=== PATIENT | female | born 1955 | race Caucasian/White ===

== ENCOUNTER 2021-04-03 12:05 | Inpatient (IN) | payer OTHER ==
[~2021-04-03] VITALS: Ht 152.4 cm; Wt 52.9 kg
[2021-04-03] MEDS ORDERED: CITA-144 PO (12:36)
[2021-04-03] MEDS ORDERED: ISOS30TA92 PO (12:36)
[2021-04-03] MEDS ORDERED: OXYB-34 PO (12:36)
[2021-04-03] MEDS ORDERED: CLOP75TA60 PO (12:36)
[2021-04-03] MEDS ORDERED: PRAV20TA4 PO (12:36)
[2021-04-03] MEDS ORDERED: CARB100 PO (12:36)
[2021-04-03] MEDS ORDERED: CARV12 PO (12:36)
[2021-04-03] MEDS ORDERED: DANT25CA2 PO (12:36)
[2021-04-03] MEDS ORDERED: TIZA6CAP PO (12:36)
[2021-04-03] MEDS ORDERED: OMEP20 PO (12:36)
[2021-04-03] MEDS ORDERED: AMLO-257 PO (12:36)
[2021-04-03] MEDS ORDERED: DIAZ5TAB5 PO (12:36)
[2021-04-03 13:04] LABS: BASOPHILS % (AUTO) 0.8 % (0.0-2.0); EOSINOPHILS % (AUTO) 0.1 % (1.0-6.0); HEMATOCRIT 44.5 % (36-46); HEMOGLOBIN 14.8 g/dL (12.0-16.0); LYMPHOCYTES # (AUTO) 1.6 K/uL (1.0-4.8); LYMPHOCYTES % (AUTO) 24.8 % (22.0-44.0); MEAN CORPUSCULAR HEMOGLOBIN 32.4 pg (26.0-34.0); MEAN CORPUSCULAR HGB CONC 33.3 G/dL (31.0-37.0); MEAN CORPUSCULAR VOLUME 97 fL (80-100); MONOCYTES # (AUTO) 0.5 K/uL (0.1-1.0); MONOCYTES % (AUTO) 8.1 % (2.0-9.0); NEUTROPHILS # (AUTO) 4.3 K/uL (1.8-7.7); NEUTROPHILS % (AUTO) 66.2 % (40.0-70.0); PLATELET COUNT (AUTO) 217 K/uL (150-450); RED BLOOD CELL COUNT(AUTO) 4.57 MIL/uL (4.00-5.20); RED CELL DISTRIBUTION WIDTH 12.7 % (11.5-14.5)
[2021-04-03 13:21] LABS: COVID AG,FIA SOURCE NASOPHARYNGEAL
[2021-04-03 13:43] LABS: INR 1.1 (0.9-1.1); PROTHROMBIN TIME 11.7 SEC (9.4-11.6)
[2021-04-03 14:12] LABS: AMPHET/METH SCREEN,URINE NEGATIVE (NEGATIVE); BARBITURATE SCREEN, URINE NEGATIVE (NEGATIVE); BENZODIAZEPINES SCREEN,URINE POSITIVE (NEGATIVE); CANNABINOID SCREEN,URINE NEGATIVE (NEGATIVE); COCAINE SCREEN,URINE NEGATIVE (NEGATIVE); METHADONE SCREEN, URINE NEGATIVE (NEGATIVE); OPIATE SCREEN,URINE NEGATIVE (NEGATIVE)
[2021-04-03 14:15] LABS: PHENCYCLIDINE SCREEN,URINE NEGATIVE (NEGATIVE)
[2021-04-03] MEDS ORDERED: ACETAMINOPHEN 325 MG TABLET PO PRN (15:00)
[2021-04-03] MEDS ORDERED: ONDANSETRON HCL 4 MG/2 ML VIAL IVP PRN (15:00)
[2021-04-03] MEDS ORDERED: 0.9% SODIUM CHLORIDE 10 ML SYRINGE IVP PRN (15:00)
[2021-04-03] MEDS ORDERED: OXYB5TAB20 PO (15:02)
[2021-04-03] MEDS ORDERED: ISOSM20 PO (15:02)
[2021-04-03 15:10] LABS: ALANINE AMINOTRANSFERASE 27 U/L (12-78); ALBUMIN 4.1 g/dL (3.4-5.0); ALKALINE PHOSPHATASE 88 U/L (46-116); ANION GAP 11 mmol/L (8-16); ASPARTATE AMINOTRANSFERASE 22 U/L (15-37); BILIRUBIN,TOTAL 0.3 mg/dL (0.1-1.0); CARBON DIOXIDE 27 mmol/L (22-29); CHLORIDE 104 mmol/L (98-107); GLOMERULAR FILTR. RATE CALC > 60 mL/min (>60); GLUCOSE,RANDOM 88 mg/dL (70-110); POTASSIUM 3.5 mmol/L (3.5-5.1); SODIUM SERUM 142 mmol/L (136-145); TOTAL PROTEIN, SERUM 7.9 g/dL (6.4-8.2); UREA NITROGEN, BLOOD 18 mg/dL (7-18)
[2021-04-03 15:57] LABS: SALICYLATE < 2.8 mg/dL (2.8-20.0)
[2021-04-03 16:31] LABS: ACETAMINOPHEN < 2 mcg/mL (10-30)
[2021-04-03 16:48] VITALS: BP 160/89
[2021-04-03 16:53] LABS: CARBAMAZEPINE (TEGRETOL) 8.9 mcg/mL (4.0-12.0); FREE T4 (FREE THYROXINE) 0.79 ng/dL (0.76-1.46)
[2021-04-03 19:08] VITALS: BP 144/100
[2021-04-03 20:49] VITALS: BP 143/93
[2021-04-03] MEDS ORDERED: DIAZEPAM 5 MG TABLET PO PRN (23:30)
[2021-04-04] MEDS: CARVEDILOL 12.5 MG TABLET PO SCH ×3 (00:04→22:07)
[2021-04-04 00:12] VITALS: BP 157/93
[2021-04-04 04:20] VITALS: BP 158/87
[2021-04-04 08:00] VITALS: BP 149/87
[2021-04-04] MEDS: DANTROLENE SODIUM 25 MG CAPSULE PO SCH ×3 (08:50→22:08)
[2021-04-04] MEDS: NYSTATIN 15 GM POWDER BOTTLE TP SCH ×3 (08:50→22:12)
[2021-04-04] MEDS: PRAVASTATIN SODIUM 20 MG TABLET PO SCH (08:50)
[2021-04-04] MEDS: TiZANidine HCL 4 MG TABLET PO SCH ×3 (08:50→22:08)
[2021-04-04] MEDS: CarBAMazepine 100 MG CHEWABLE TABLET PO SCH ×3 (08:51→22:08)
[2021-04-04] MEDS: ISOSORBIDE MONONITRATE 30 MG ER TABLET PO SCH (08:51)
[2021-04-04] MEDS: AmLODIPine BESYLATE 5 MG TABLET PO SCH (08:51)
[2021-04-04] MEDS: PANTOPRAZOLE SODIUM 40 MG DR TABLET PO SCH (08:51)
[2021-04-04] MEDS: OXYBUTYNIN CHLORIDE 5 MG TABLET PO SCH ×3 (08:51→22:11)
[2021-04-04] MEDS: CLOPIDOGREL BISULFATE 75 MG TABLET PO SCH (08:51)
[2021-04-04] MEDS ORDERED: CITALOPRAM HYDROBROMIDE 20 MG TABLET PO SCH (09:00)
[2021-04-04] MEDS ORDERED: HYDROCODONE/ACETAMINOPHEN 5-325 MG TABLET PO PRN (09:30)
[2021-04-04] MEDS ORDERED: BISACODYL 10 MG RECTAL RECTAL SUPPOSITORY PR PRN (09:30)
[2021-04-04] MEDS ORDERED: ONDANSETRON HCL 4 MG/2 ML VIAL IVP PRN (09:30)
[2021-04-04] MEDS ORDERED: MORPHINE SULFATE 2 MG/ML SYRINGE IVP PRN (09:30)
[2021-04-04] MEDS ORDERED: ALBUTEROL SULFATE 2.5 MG/0.5 ML NEB SOLUTION NEB PRN (09:30)
[2021-04-04] MEDS ORDERED: ZOLPIDEM TARTRATE 5 MG TABLET PO PRN (09:30)
[2021-04-04] MEDS ORDERED: ACETAMINOPHEN 325 MG TABLET PO PRN (09:30)
[2021-04-04] MEDS ORDERED: MAGNESIUM HYDROXIDE SUSPENSION 30 ML UDCUP PO PRN (09:30)
[2021-04-04] MEDS ORDERED: IPRATROPIUM BROMIDE 0.5 MG/2.5 ML NEB SOLUTION NEB PRN (09:30)
[2021-04-04] MEDS: HEPARIN SODIUM,PORCINE 5,000 UNITS/ML VIAL SQ SCH (15:54)
[2021-04-04 16:39] VITALS: BP 139/88
[2021-04-04 20:32] VITALS: BP 123/92
[2021-04-04] MEDS: DOCUSATE SODIUM 100 MG CAPSULE PO SCH (22:07)
[2021-04-05 00:08] VITALS: BP 118/75
[2021-04-05] MEDS: HEPARIN SODIUM,PORCINE 5,000 UNITS/ML VIAL SQ SCH ×4 (00:25→23:36)
[2021-04-05 05:43] VITALS: BP_SYST 142; BP_SYST 145; BP_DIAS 100; BP_DIAS 75
[2021-04-05 08:37] VITALS: BP 173/100
[2021-04-05] MEDS: NYSTATIN 15 GM POWDER BOTTLE TP SCH ×2 (09:04→17:02)
[2021-04-05] MEDS: PETROLATUM,WHITE 28 GM JELLY TP SCH (09:04)
[2021-04-05] MEDS: THIAMINE 100 MG/ML 2 ML VIAL IM SCH (09:05)
[2021-04-05] MEDS: OXYBUTYNIN CHLORIDE 5 MG TABLET PO SCH ×3 (09:06→21:42)
[2021-04-05] MEDS: DANTROLENE SODIUM 25 MG CAPSULE PO SCH ×3 (09:06→21:42)
[2021-04-05] MEDS: CITALOPRAM HYDROBROMIDE 10 MG TABLET PO SCH (09:07)
[2021-04-05] MEDS: AmLODIPine BESYLATE 5 MG TABLET PO SCH (09:08)
[2021-04-05] MEDS: DOCUSATE SODIUM 100 MG CAPSULE PO SCH ×2 (09:08→21:00)
[2021-04-05] MEDS: PRAVASTATIN SODIUM 20 MG TABLET PO SCH (09:08)
[2021-04-05] MEDS: TiZANidine HCL 4 MG TABLET PO SCH ×3 (09:08→21:43)
[2021-04-05] MEDS: ISOSORBIDE MONONITRATE 30 MG ER TABLET PO SCH (09:09)
[2021-04-05] MEDS: FOLIC ACID 1 MG TABLET PO SCH (09:09)
[2021-04-05] MEDS: CLOPIDOGREL BISULFATE 75 MG TABLET PO SCH (09:09)
[2021-04-05] MEDS: ASCORBIC ACID 500 MG TABLET PO SCH (09:10)
[2021-04-05] MEDS: CarBAMazepine 100 MG CHEWABLE TABLET PO SCH ×3 (09:10→21:42)
[2021-04-05] MEDS: PANTOPRAZOLE SODIUM 40 MG DR TABLET PO SCH (09:11)
[2021-04-05] MEDS: CARVEDILOL 12.5 MG TABLET PO SCH (09:11)
[2021-04-05 12:33] VITALS: BP 134/94
[2021-04-05 15:46] VITALS: BP 132/90
[2021-04-05 20:00] VITALS: BP 100/63
[2021-04-06 00:06] VITALS: BP 101/68
[2021-04-06] MEDS: CARVEDILOL 12.5 MG TABLET PO SCH ×2 (00:12→08:24)
[2021-04-06] MEDS: NYSTATIN 15 GM POWDER BOTTLE TP SCH ×3 (00:15→15:54)
[2021-04-06 04:46] VITALS: BP 101/65
[2021-04-06 08:01] VITALS: BP 142/97
[2021-04-06] MEDS: DOCUSATE SODIUM 100 MG CAPSULE PO SCH (08:20)
[2021-04-06] MEDS: CITALOPRAM HYDROBROMIDE 10 MG TABLET PO SCH (08:20)
[2021-04-06] MEDS: DANTROLENE SODIUM 25 MG CAPSULE PO SCH ×2 (08:20→15:51)
[2021-04-06] MEDS: TiZANidine HCL 4 MG TABLET PO SCH ×2 (08:21→15:52)
[2021-04-06] MEDS: CLOPIDOGREL BISULFATE 75 MG TABLET PO SCH (08:22)
[2021-04-06] MEDS: ISOSORBIDE MONONITRATE 30 MG ER TABLET PO SCH (08:22)
[2021-04-06] MEDS: ASCORBIC ACID 500 MG TABLET PO SCH (08:23)
[2021-04-06] MEDS: FOLIC ACID 1 MG TABLET PO SCH (08:23)
[2021-04-06] MEDS: PRAVASTATIN SODIUM 20 MG TABLET PO SCH (08:24)
[2021-04-06] MEDS: PANTOPRAZOLE SODIUM 40 MG DR TABLET PO SCH (08:24)
[2021-04-06] MEDS: OXYBUTYNIN CHLORIDE 5 MG TABLET PO SCH ×2 (08:25→15:51)
[2021-04-06] MEDS: CarBAMazepine 100 MG CHEWABLE TABLET PO SCH ×2 (08:26→15:51)
[2021-04-06] MEDS: HEPARIN SODIUM,PORCINE 5,000 UNITS/ML VIAL SQ SCH ×2 (08:30→15:51)
[2021-04-06] MEDS: THIAMINE 100 MG/ML 2 ML VIAL IM SCH (08:33)
[2021-04-06] MEDS ORDERED: AmLODIPine BESYLATE 10 MG TABLET PO SCH (09:00)
[2021-04-06] MEDS: PETROLATUM,WHITE 28 GM JELLY TP SCH (09:54)
[2021-04-06 11:33] VITALS: BP 87/59
[2021-04-06] MEDS ORDERED: SODIUM CHLORIDE 0.9% 250 ML IV ONE (12:00)
[2021-04-06 12:35] VITALS: BP 110/71
[2021-04-06 15:32] VITALS: BP 114/75
== END 2021-04-06 17:30 | disposition home health service (06) | DRG 918 ==
LOC: EMS 12:05 → 6N 15:19
PROVIDERS: ADMIT Hospitalist; ATTEND Hospitalist
DX: T42.4X2A Poisoning by benzodiazepines, intentional self-harm, initial encounter (principal); R45.851 Suicidal ideations; F33.2 Major depressive disorder, recurrent severe without psychotic features; I10 Essential (primary) hypertension; K21.9 Gastro-esophageal reflux disease without esophagitis; E78.5 Hyperlipidemia, unspecified; F12.90 Cannabis use, unspecified, uncomplicated; G89.29 Other chronic pain; T40.602A Poisoning by unspecified narcotics, intentional self-harm, initial encounter; G35 Multiple sclerosis; M19.90 Unspecified osteoarthritis, unspecified site; R56.9 Unspecified convulsions; Z20.822 Contact with and (suspected) exposure to COVID-19; J44.9 Chronic obstructive pulmonary disease, unspecified; I25.2 Old myocardial infarction; Z87.891 Personal history of nicotine dependence; Z91.5 Personal history of self-harm; Z74.01 Bed confinement status; Z91.030 Bee allergy status; Z88.2 Allergy status to sulfonamides; Z91.018 Allergy to other foods; Z79.899 Other long term (current) drug therapy; Y92.89 Other specified places as the place of occurrence of the external cause
CPT/HCPCS: 71045; 80053; 80156; 84439; 84484; 85025; 85610; 85730; 93005; 97163; 97167; 97530; 97535; 99285; G0480; G0481; J1644; J3411; J7050; 36415-L1; 36415-TC